=== PATIENT | male | born 2000 | race Caucasian/White ===

== ENCOUNTER 2022-02-28 17:25 | Emergency (ER) | payer OTHER ==
[~2022-02-28] VITALS: Ht 160 cm; Wt 70.3 kg
== END 2022-02-28 23:37 | disposition home or self-care (01) ==
LOC: ER 17:25
DX: R10.32 Left lower quadrant pain (principal)

== ENCOUNTER 2023-03-06 07:00 | Emergency (ER) | payer OTHER ==
[~2023-03-06] VITALS: Ht 162.6 cm; Wt 72.6 kg
[2023-03-06] MEDS ORDERED: ANUSOL-HC30 G2 TOP (08:52)
== END 2023-03-06 09:12 | disposition home or self-care (01) ==
LOC: ER 07:00
DX: K64.9 Unspecified hemorrhoids (principal)

== ENCOUNTER 2024-04-02 19:50 | Emergency (ER) | payer OTHER ==
[~2024-04-02] VITALS: Ht 162.6 cm; Wt 74.8 kg
[~2024-04-02 19:50] MED LIST: ANUSOL-HC30 G2 TOP
[2024-04-02] MEDS ORDERED: KETOROLAC TROMETHAMINE 30 MG VIAL IV ONE (20:30)
[2024-04-02] MEDS ORDERED: ONDANSETRON HCL 2 MG/ML VIAL ONE (20:39)
[2024-04-02] MEDS ORDERED: KETOROLAC TROMETHAMINE 30 MG VIAL ONE ×2 (20:39→22:39)
[2024-04-02] MEDS ORDERED: 0.9 % SODIUM CHLORIDE 1,000 ML IV SCH (20:45)
[2024-04-02] MEDS ORDERED: ONDANSETRON HCL 2 MG/ML VIAL IV ONE (20:45)
[2024-04-02 21:05] LABS: PH,URINE 5.5 (5.0-8.0); URINE APPEARANCE Clear; URINE BILIRRUBIN Negative (NEGATIVE); URINE BLOOD Large; URINE COLOR Yellow; URINE GLUCOSE Negative (NEGATIVE); URINE KETONE Negative (NEGATIVE); URINE LEUKOCYTE Negative; URINE NITRATE Negative; URINE PROTEIN Trace (NEGATIVE); URINE UROBILINOGEN 0.2 E.U./dl
[2024-04-02 21:09] LABS: URINE BACTERIA 89.4 uL (0.0-1933); URINE EPITHELIAL CELLS 6.3 uL (0.0-38.8); URINE RBC 622.5 uL (0.0-20.8)
[2024-04-02 21:14] LABS: HEMATOCRIT 48.7 % (39.0-48.0); HEMOGLOBIN 16.8 g/dL (13-16.00); MEAN CELL VOLUME 92.6 fL (80.0-100.00); MEAN CORPUSCULAR HEMOGLOBIN 31.9 pg (27.00-32.0); MEAN CORPUSCULAR HGB CONC 34.5 g/dl (32.0-36.0); PLATELET COUNT 309 K/uL (150-450); RED BLOOD COUNT 5.26 M/uL (4.00-6.00); RED CELL DISTRIBUTION WIDTH 13.1 % (11.5-14.5)
[2024-04-02 21:22] LABS: ALBUMIN 4.4 gm/dL (3.4-5.0); BILIRUBIN TOTAL 0.41 mg/dL (0.3-1.2); CALCIUM 9.1 mg/dL (8.5-10.1); CREATININE SERUM 0.94 mg/dL (0.70-1.30); GFR 97.78; GLOBULINA 4.4 G/DL (2.4-3.5); POTASSIUM 5.46 mEq/L (3.5-5.1); TOTAL PROTEIN 8.8 gm/dL (6.4-8.2)
[2024-04-02 21:30] LABS: URINE CAST 0.15 uL (0.0-1.40)
[2024-04-02] MEDS ORDERED: ONDANSETRON ODT8 MG PO (22:25)
[2024-04-02] MEDS ORDERED: KETO10TA2 PO (22:25)
[2024-04-02] MEDS ORDERED: TAMS0.4C PO (22:25)
[2024-04-02] MEDS ORDERED: CIPRO500 MG PO (22:25)
[2024-04-02] MEDS ORDERED: KETOROLAC TROMETHAMINE 30 MG VIAL IV STA (22:36)
== END 2024-04-02 22:46 | disposition home or self-care (01) ==
LOC: ER 19:51
PROVIDERS: General Practice
DX: N20.2 Calculus of kidney with calculus of ureter (principal)